=== PATIENT | female | born 1975 | race Caucasian/White ===

== ENCOUNTER 2019-01-21 23:28 | Emergency (ER) | payer OTHER ==
[~2019-01-21] VITALS: Ht 167.6 cm; Wt 63.5 kg
[~2019-01-21 23:28] MED LIST: ALLERGY-TIME4 MG; COLACE 100 MG100 MG; IBUPROFEN 800800 M1; LANOLIN56 GM; NORCO 10-325 T1 EACH; PRENATAL MULTI1 EAC2; PRENATAL PO; SYNTHROID175 MCG
[2019-01-22 00:38] LABS: URINE BILIRUBIN NEGATIVE (Negative); URINE BLOOD 1+ (Negative); URINE CLARITY CLEAR; URINE COLOR YELLOW; URINE GLUCOSE-RANDOM* NEGATIVE (Negative); URINE KETONES NEGATIVE (Negative); URINE LEUKOCYTES-REFLEX NEGATIVE (Negative); URINE NITRITE-REFLEX NEGATIVE (Negative); URINE PROTEIN (DIPSTICK) TRACE (Negative); URINE SPECIFIC GRAVITY >= 1.030 (1.005-1.035); URINE UROBILINOGEN 0.2 E.U./dl (0.2-1.0)
[2019-01-22 00:41] LABS: AMP/METHAMP Negative (Negative); BARBITURATES Negative (Negative); BENZODIAZEPINES Negative (Negative); COCAINE Negative (Negative); METHADONE Negative (Negative); OPIATES Negative (Negative); PCP Negative (Negative)
[2019-01-22 00:46] LABS: CASTS None Seen /LPF (None Seen); CRYSTALS None Seen /LPF (None Seen); MUCUS None Seen strn/LPF (None Seen); SQUAMOUS None Seen /LPF (0-3)
[2019-01-22 00:47] LABS: AMORPHOUS URATES Many /LPF (None Seen); BACTERIA-REFLEX None Seen /HPF (None Seen); URINE RBC 0-2 Rare /HPF (0-2); URINE WBC-REFLEX None Seen /HPF (0-5)
[2019-01-22 00:47] LABS: ABSOLUTE NEUTROPHILS 9.6 thou/uL (1.4-8.2); EOSINOPHILS 0.6 % (0.0-3.0); HEMOGLOBIN 13.9 gm/dL (12.0-15.0); LYMPHOCYTES 14.5 % (24.0-44.0); MCHC 33.9 g/dL (28.0-37.0); MCV 91.4 fL (80.0-100.0); MONOCYTES 3.4 % (1.0-8.0); PLATELET COUNT 242 thou/uL (150-400); POLYS 80.5 % (36.0-66.0); RBC 4.49 mil/uL (4.20-5.00); RDW 13.1 % (10.5-14.5); WBC 11.9 thou/uL (4.0-11.0)
[2019-01-22] MEDS ORDERED: ZOFRAN ODT4 MG DISSOLVE (00:56)
[2019-01-22 00:57] LABS: ANION GAP 9 mmol/L (7-16); BUN 13 mg/dL (7-18); CALCIUM 9.3 mg/dL (8.5-10.1); CHLORIDE 103 mmol/L (98-107); CO2 27 mmol/L (21-32); CREATININE 0.9 mg/dL (0.6-1.0); GLUCOSE 114 mg/dL (74-106); POTASSIUM 4.1 mmol/L (3.5-5.1); SODIUM 139 mmol/L (136-145)
[2019-01-22 01:09] LABS: LIPASE 159 U/L (73-393); MAGNESIUM 1.9 mg/dL (1.8-2.4); SGOT 15 U/L (15-37); SGPT 19 U/L (30-65); TOTAL BILIRUBIN 0.4 mg/dL (<0.1-1.0); TOTAL PROTEIN 7.9 g/dL (6.4-8.2); TROPONIN-I <0.06 ng/mL (<0.06)
[2019-01-22 02:08] VITALS: BP 111/69
--- NOTE | 2019-01-24 08:40 | EKG ---
[address] [address] ELECTROCARDIOGRAM REPORT Name: LUIS CALLAHAN Room #: DEP [facility]#: [id number] ������������������ Admission: 01/21/19 ������������������ Attend Phys: Discharge: 01/22/19 ������������������ Date of : 79 Report #: [id number] ����������������������������������������������������������������� [id number] THIS REPORT FOR: //name// [facility] ED Test Date: 2019-01-22 Test Time: 01:01:38 Pat Name: LUIS CALLAHAN Department: Room: Gender: F [employer]ified [employer]: KATHLEEN : 1975 Requested By: Brayden Pulido Order Number: [id number] MD: Terrell Greenberg Measurements Intervals [place] Rate: 90 P: 62 HI: 150 QRS: 72 QRSD: 102 T: 30 QT: 382 QTc: 468 Interpretive Statements Sinus rhythm Atrial premature complexes Compared to ECG 12/12/2011 02:07:41 Atrial premature complex(es) now present Electronically Signed On 01-24-2019 8:40:15 CDT by Terrell Greenberg [email or web address] ��������������������������������������������� <ELECTRONICALLY SIGNED> ���������������������������������������� By: Terrell Greenberg MD, [facility] ��������������������������������������������� 01/24/19 0840 0101 010 Terrell Greenberg MD, FACC /EPI
== END 2019-01-22 02:16 | disposition home or self-care (01) ==
LOC: ER 23:28
PROVIDERS: Emergency Medicine
DX: R55 Syncope and collapse (principal); R11.2 Nausea with vomiting, unspecified; R19.7 Diarrhea, unspecified; F17.210 Nicotine dependence, cigarettes, uncomplicated; Z88.8 Allergy status to other drugs, medicaments and biological substances; Z79.899 Other long term (current) drug therapy

== ENCOUNTER 2019-12-12 18:08 | Emergency (ER) | payer OTHER ==
[~2019-12-12] VITALS: Ht 167.6 cm; Wt 68.0 kg
[~2019-12-12 18:08] MED LIST changes: +ZOFRAN ODT4 MG DISSOLVE
[2019-12-12 18:33] VITALS: BP 137/88
[2019-12-12] MEDS ORDERED: PERCOCET 5-3251 EACH PO (19:05)
== END 2019-12-12 19:04 | disposition home or self-care (01) ==
LOC: ER 18:08
DX: S63.284A Dislocation of proximal interphalangeal joint of right ring finger, initial encounter (principal); E05.00 Thyrotoxicosis with diffuse goiter without thyrotoxic crisis or storm; F17.210 Nicotine dependence, cigarettes, uncomplicated; Z79.899 Other long term (current) drug therapy; Z88.8 Allergy status to other drugs, medicaments and biological substances; W18.09XA Striking against other object with subsequent fall, initial encounter; Y93.89 Activity, other specified; Y92.89 Other specified places as the place of occurrence of the external cause; Y99.8 Other external cause status

== ENCOUNTER 2020-12-06 14:42 | Emergency (ER) | payer OTHER ==
[~2020-12-06] VITALS: Ht 167.6 cm; Wt 72.6 kg
[~2020-12-06 14:42] MED LIST changes: +PERCOCET 5-3251 EACH PO
[2020-12-06] MEDS ORDERED: CLONAZEPAM 0.50.5 M1 PO (14:49)
[2020-12-06] MEDS ORDERED: LEVOTHYROXINE200 MC1 PO (14:49)
[2020-12-06] MEDS ORDERED: PROZAC20 MG PO (14:49)
[2020-12-06] MEDS ORDERED: TIZANIDINE HCL4 M2 PO (14:50)
[2020-12-06] MEDS ORDERED: NORETHIN ESTRA PO (14:50)
[2020-12-06] MEDS ORDERED: ZOCOR 20 MG TAB20 M1 PO (14:50)
[2020-12-06] MEDS ORDERED: MELOXICAM15 MG PO (14:50)
[2020-12-06 16:55] VITALS: BP 123/78
== END 2020-12-06 16:59 | disposition home or self-care (01) ==
LOC: ER 14:42
DX: S09.8XXA Other specified injuries of head, initial encounter (principal); E03.9 Hypothyroidism, unspecified; M19.90 Unspecified osteoarthritis, unspecified site; W22.8XXA Striking against or struck by other objects, initial encounter; Y93.02 Activity, running; Y92.59 Other trade areas as the place of occurrence of the external cause; Y99.8 Other external cause status; F17.210 Nicotine dependence, cigarettes, uncomplicated; Z88.8 Allergy status to other drugs, medicaments and biological substances